=== PATIENT | female | born 1935 | race Caucasian/White ===

== ENCOUNTER 2017-02-17 00:47 | Emergency (ER) | payer OTHER, MEDICARE ==
[~2017-02-17] VITALS: Ht 167.6 cm; Wt 72.6 kg
--- NOTE | 2017-02-17 00:51 | ED MVC/FALL/TRAUMA COMPLAINT ---
History of Present Illness General Chief Complaint: Fall Stated Complaint: "FALL" Source: patient, EMS Exam Limitations: clinical condition Vital Signs & Intake/Output Vital Signs & Intake/Output Vital Signs Date Time Temp Pulse Resp B/P B/P Pulse O2 O2 Flow FiO2 Mean Ox Delivery Rate 02/17 0148 98.7 87 16 108/63 100 02/17 0049 98.2 96 18 163/102 94 Room Air Allergies Coded Allergies: acetaminophen (From PERCOCET) (Mild, NAUSEA 02/17/17) PT REPORTS VOMITING oxycodone (From PERCOCET) (Mild, NAUSEA 02/17/17) PT REPORTS VOMITING Reconcile Medications Aspirin (Aspirin*) 81 MG TAB.CHEW 1 TAB PO DAILY HEART HEALTH (Reported) Lisinopril 5 MG TABLET 1 TAB PO DAILY HIGH BLOOD PRESSURE (Reported) Simvastatin (Simvastatin*) 20 MG TABLET 1 TAB PO QPM HIGH CHOLESTROL ( Reported) Sitagliptin Phos/Metformin HCl (Janumet 50-1,000 MG Tablet) 50 MG-1,000 MG TABLET 1 TAB PO BID DIABETES (Reported) Triage Nurses Notes Reviewed? yes Onset: Abrupt Duration: minute(s): Timing: single episode today Severity: mild, moderate Injuries/Fall Location: head, "My tailbone hurts" Loss of Consciousness: brief (seconds) Modifying Factors: Improves With: rest. Associated Symptoms: bleeding from occiput, tailbone pain HPI: 81 yo woman h/o type ii diabetes, presents after a fall. She shares that she was walking out of a friend's home. She fell, briefly lost consciousness. "The next thing I knew, I was back inside." She does not recall palpitations, dizziness, chest pain, or syncopal prodrome. She notes bleeding from her occiput and tailbone pain, but was able to ambulate without problem afterwards. She is otherwise well. Past History Travel History Traveled to [place] past 21 day No Medical History Any Pertinent Medical History? see below for history Endocrine: diabetes Surgical History Surgical History: non-contributory Psychosocial History What is your primary language Slovenian Family History Hx Contributory? No Review of Systems Review of Systems Constitutional: Reports: no symptoms. Eyes: Reports: no symptoms. Ears, Nose, Throat, Mouth: Reports: no symptoms. Respiratory: Reports: no symptoms. Cardiovascular: Reports: no symptoms. Gastrointestinal/Abdominal: Reports: no symptoms. Genitourinary: Reports: no symptoms. Musculoskeletal: Reports: no symptoms. Skin: Reports: no symptoms. Neurological/Psychological: Reports: no symptoms. All Other Systems: Reviewed and Negative Physical Exam Physical Exam General Appearance: well developed/nourished, mild distress Head: 3cm oblique, superficial, well approximated laceration in occiput Eyes: Bilateral: normal appearance, PERRL, EOMI. Ears, Nose, Throat, Mouth: hearing grossly normal, moist mucous membrane Neck: normal inspection, supple, full range of motion, normal alignment, no midline tenderness Respiratory: normal breath sounds, chest non-tender, no respiratory distress, quiet respiration, lungs clear Cardiovascular: regular rate/rhythm Gastrointestinal: normal bowel sounds, soft, non-tender Back: normal inspection, no vertebral tenderness, mild lower lumbar paraspinal tenderness to palpation Extremities: normal range of motion, no ligament instability Neurologic/Psych: no motor/sensory deficits, awake, alert, oriented x 3 Skin: intact, normal color, warm/dry Core Measures ACS in differential dx? No CVA/TIA Diagnosis No Sepsis Present: No Sepsis Focused Exam Completed? No Progress Differential Diagnosis: C/T/L spine injury, ICH, pelvis injury Plan of Care: Orders Procedure Date/time Status XRY-PORTABLE CHEST XRAY 02/17 51 Active TROPONIN LEVEL 02/17 51 Complete PARTIAL THROMBOPLASTIN TIME 02/17 51 Complete PROTHROMBIN TIME 02/17 51 Complete COMPREHENSIVE METABOLIC PANEL 02/17 51 Complete CBC WITHOUT DIFFERENTIAL 02/17 51 Complete EKG 02/17 51 Active Laboratory Tests 02/17/17 0056: Anion Gap 11, Estimated GFR 60, BUN/Creatinine Ratio 18.9, Glucose 141 H, Calcium 9.8, Total Bilirubin 0.3, AST 33, ALT 49, Alkaline Phosphatase 28, Troponin I < 0.01, Total Protein 7.1, Albumin 4.2, Globulin 2.9, Albumin/ Globulin Ratio 1.4, PT 11.2, INR 1.07, APTT 25, CBC w Diff NO MAN DIFF REQ, RBC 4.57, MCV 89.3, MCH 30.1, RDW 14.2, MPV 7.6, Gran % 72.2, Lymphocytes % 19.2 L, Monocytes % 5.7, Eosinophils % 2.8, Basophils % 0.1, Absolute Granulocytes 6.6 H, Absolute Lymphocytes 1.8, Absolute Monocytes 0.5, Absolute Eosinophils 0.3, Absolute Basophils 0, PUBS MCHC 33.7 Diagnostic Imaging: Viewed by Me: Radiology Read, CT Scan. Discussed w/RAD: Radiology Read, CT Scan. Radiology Impression: HEAD/CERVICAL CT... CONCERN FOR SUBDURAL... FULL REPORT BELOW PATIENT: BILL GARCIA PRESENT AGE: 81 PATIENT ACCOUNT NO: [id number] : 34 LOCATION: [facility] ORDERING PHYSICIAN: Jose Mayorga MD SERVICE DATE: 02/17/17 EXAM TYPE: CAT - CT CERV SPINE WO IV CONTRAST; CT HEAD WO IV CONTRAST EXAMINATION: CT HEAD WITHOUT CONTRAST CT CERVICAL SPINE WITHOUT CONTRAST CLINICAL INFORMATION: Fall. Occiput laceration. COMPARISON: CT head dated 11/16/2012. TECHNIQUE: Contiguous axial imaging was performed from the skull base to vertex without intravenous administration of contrast. Multidetector helical imaging was performed through the cervical spine. Coronal and sagittal reformats were completed at the technologist workstation. DLP: 915 mGy-cm. FINDINGS: HEAD: There is a left parietal scalp contusion. No underlying calvarial fracture. There is slight thickening of the left tentorial leaflet. There is no evolved territorial infarction. No abnormal mass effect or midline shift is seen. Cortical morales to white matter differentiation is well preserved without evidence of territorial infarct. No hydrocephalus. The mastoid air cells and visualized portions of the paranasal sinuses are well aerated. CERVICAL SPINE: There is reversal of the normal cervical lordosis. No there is grade 1 degenerative anterolisthesis of C3 on C4 acute fracture or dislocation is identified in the cervical spine. Vertebral body heights are maintained. Hypertrophic degenerative changes noted at the atlantoaxial junction. No prevertebral soft tissue swelling. Multilevel spondylosis is present with disc osteophyte complexes at multiple levels most prominently C4-C5 where there is likely at least mild associated spinal canal narrowing. There is severe multilevel posterior facet arthropathy and upper cervical spine. The lung apices are clear. IMPRESSION: 1. Left parietal scalp contusion with slight asymmetric thickening of the left tentorial leaflet which may represent age-related calcification though a trace subdural hematoma is difficult to exclude. Consider short interval follow-up. 2. Multilevel degenerative changes in the cervical spine. No evidence of acute cervical spine traumatic injury. This critical result was discussed with Dr. Mayorga at 1:43 AM on 02/17/2017 and it was ascertained that the content and urgency of the report was understood at the time of direct communication. DICTATED BY: Jarrod Liao MD DATE/TIME DICTATED:02/17/17134 WOOL CLASSER:GARY DATE/ TIME TRANSCRIBED:02/17/17134 CONFIDENTIAL, DO NOT COPY WITHOUT APPROPRIATE AUTHORIZATION. <Electronically signed in Other Vendor System> SIGNED BY: Jarrod Liao MD 02/17/17 0153, sacrum/coccyx.... no acute fx PATIENT: BILL GARCIA PRESENT AGE: 81 PATIENT ACCOUNT NO: [id number] : 34 LOCATION: ER ORDERING PHYSICIAN: Jose Mayorga MD SERVICE DATE: 02/17/17 EXAM TYPE: RAD - XRY-SACRUM AND COCCYX EXAMINATION: XR PELVIS XR SACRUM AND COCCYX CLINICAL INFORMATION: Fall, trauma. COMPARISON: None TECHNIQUE: AP view of the pelvis. AP and lateral views of the sacrum and coccyx. FINDINGS: The bones and soft tissues are normal. No fracture. Sacroiliac and hip joints are normal. The iliopubic and iliopectineal lines are maintained. Pelvic rings are intact. Visualized abdominal gas pattern is unremarkable. The sacral body and gasper are intact. Posterior fusion hardware is noted in the lumbosacral spine. IMPRESSION: No acute osseous abnormalities. DICTATED BY: Jarrod Liao MD DATE/TIME DICTATED:02/17/17157 WOOL CLASSER:GARY DATE/TIME TRANSCRIBED:02/17/17157 CONFIDENTIAL, DO NOT COPY WITHOUT APPROPRIATE AUTHORIZATION. <Electronically signed in Other Vendor System> SIGNED BY: Jarrod Liao MD 02/17/17 0201, ap pelvis... no fx PATIENT: BILL GARCIA PRESENT AGE: 81 PATIENT ACCOUNT NO: [id number] : 34 LOCATION: ER ORDERING PHYSICIAN: Jose Mayorga MD SERVICE DATE: 02/17/17 EXAM TYPE: RAD - XRY-AP PELVIS EXAMINATION: XR PELVIS XR SACRUM AND COCCYX CLINICAL INFORMATION: Fall, trauma. COMPARISON: None TECHNIQUE: AP view of the pelvis. AP and lateral views of the sacrum and coccyx. FINDINGS: The bones and soft tissues are normal. No fracture. Sacroiliac and hip joints are normal. The iliopubic and iliopectineal lines are maintained. Pelvic rings are intact. Visualized abdominal gas pattern is unremarkable. The sacral body and gasper are intact. Posterior fusion hardware is noted in the lumbosacral spine. IMPRESSION: No acute osseous abnormalities. DICTATED BY: Jarrod Liao MD DATE/TIME DICTATED:02/17/17154 WOOL CLASSER:GARY DATE/TIME TRANSCRIBED:02/17/17154 CONFIDENTIAL, DO NOT COPY WITHOUT APPROPRIATE AUTHORIZATION. <Electronically signed in Other Vendor System> SIGNED BY: Jarrod Liao MD 02/17/17200, LS spine... no fx, fusion noted PATIENT: BILL GARCIA PRESENT AGE: 81 PATIENT ACCOUNT NO: [id number] : 34 LOCATION: [facility] ORDERING PHYSICIAN: Jose Mayorga MD SERVICE DATE: 02/17/17 EXAM TYPE: RAD - XRY-LUMBOSACRAL SPINE AP & LAT EXAMINATION: XR LUMBOSACRAL SPINE CLINICAL INFORMATION: Fall, trauma. COMPARISON : CT lumbar spine dated 04/08/2008. TECHNIQUE: AP and lateral views of the lumbar spine. FINDINGS: Posterior spinal fusion hardware is noted spanning L3- S1. The bones are osteopenic. Vertebral body heights are maintained. Spinal alignment is maintained. No evidence of fracture. There is loss of intervertebral disc space height at multiple levels most prominently L2-L3, L4- L5, and L5-S1. Atherosclerotic vascular calcifications are noted in the abdominal aorta. IMPRESSION: Images demonstrate prior posterior instrumentation and fusion from L3 through S1. No evidence of acute compression fracture or traumatic subluxation. DICTATED BY: Jarrod Liao MD DATE/TIME DICTATED:02/17 WOOL CLASSER:GARY DATE/TIME TRANSCRIBED:02/17/17157 CONFIDENTIAL, DO NOT COPY WITHOUT APPROPRIATE AUTHORIZATION. <Electronically signed in Other Vendor System> SIGNED BY: Jarrod Liao MD 02/17/17203 Departure Departure Disposition: [facility] (ACUTE) Condition: Stable Clinical Impression Primary Impression: Subdural hematoma Secondary Impressions: Contusion, Fall, Head injury, Scalp laceration Referrals: Giulia PANDEY,Lelia Ty (PCP/Family) Departure Forms: Customer Survey General Discharge Information Comments 02/17/17, 1:45am... discussed with [facility]... possible subdural hematoma 02/17/17, 2:04am... discussed with dr. peguero ([facility]) who accepts patient for transfer. Discussed at length with patient who has signed consent form for transfer. Critical Care Note Critical Care Note Critical Care Time: 30-74 min
[2017-02-17] MEDS ORDERED: JANUMET 50-1,01 EACH PO (01:08)
[2017-02-17] MEDS ORDERED: LISINOPRIL5 M1 PO (01:08)
[2017-02-17] MEDS ORDERED: SIMVASTATIN20 M2 PO (01:09)
[2017-02-17 01:11] LABS: ABSOLUTE BASOPHIL COUNT 0 /CUMM (0.0-0.2); ABSOLUTE EOSINOPHIL COUNT 0.3 /CUMM (0.0-0.7); ABSOLUTE GRANULOCYTE CT 6.6 /CUMM (1.4-6.5); ABSOLUTE LYMPH COUNT 1.8 /CUMM (1.2-3.4); ABSOLUTE MONOCYTE COUNT 0.5 /CUMM (0.10-0.60); BASOPHIL % 0.1 % (0.0-2.0); EOSINOPHIL % 2.8 % (0-5); GRANULOCYTE % 72.2 % (42.2-75.2); HEMATOCRIT 40.9 % (37-47); MEAN CORPUSCULAR HGB 30.1 PG (27.0-31.0); MEAN CORPUSCULAR HGB CONC 33.7 G/DL (33.0-37.0); MEAN CORPUSCULAR VOLUME 89.3 FL (81.0-99.0); MEAN PLATELET VOLUME 7.6 FL (7.4-10.4); PLATELET COUNT 288 /CUMM (130-400); RBC DISTRIBUTION WIDTH 14.2 % (11.5-14.5); RED BLOOD CELL CT 4.57 /CUMM (4.20-5.40); WHITE BLOOD CELL COUNT 9.1 /CUMM (4.8-10.8)
[2017-02-17] MEDS ORDERED: ASPIRIN81 M4 PO (01:11)
[2017-02-17 01:15] LABS: PT 11.2 SEC (9.4-12.5)
[2017-02-17 01:16] LABS: PTT 25 SEC (25-37)
[2017-02-17 01:48] VITALS: BP 108/63
--- NOTE | 2017-02-17 01:53 | CT SCAN REPORT ---
EXAMINATION: CT HEAD WITHOUT CONTRAST CT CERVICAL SPINE WITHOUT CONTRAST CLINICAL INFORMATION: Fall. Occiput laceration. COMPARISON: CT head dated 11/16/2012. TECHNIQUE: Contiguous axial imaging was performed from the skull base to vertex without intravenous administration of contrast. Multidetector helical imaging was performed through the cervical spine. Coronal and sagittal reformats were completed at the technologist workstation. DLP: 915 mGy-cm. FINDINGS: HEAD: There is a left parietal scalp contusion. No underlying calvarial fracture. There is slight thickening of the left tentorial leaflet. There is no evolved territorial infarction. No abnormal mass effect or midline shift is seen. Cortical morales to white matter differentiation is well preserved without evidence of territorial infarct. No hydrocephalus. The mastoid air cells and visualized portions of the paranasal sinuses are well aerated. CERVICAL SPINE: There is reversal of the normal cervical lordosis. No there is grade 1 degenerative anterolisthesis of C3 on C4 acute fracture or dislocation is identified in the cervical spine. Vertebral body heights are maintained. Hypertrophic degenerative changes noted at the atlantoaxial junction. No prevertebral soft tissue swelling. Multilevel spondylosis is present with disc osteophyte complexes at multiple levels most prominently C4-C5 where there is likely at least mild associated spinal canal narrowing. There is severe multilevel posterior facet arthropathy and upper cervical spine. The lung apices are clear. IMPRESSION: 1. Left parietal scalp contusion with slight asymmetric thickening of the left tentorial leaflet which may represent age-related calcification though a trace subdural hematoma is difficult to exclude. Consider short interval follow-up. 2. Multilevel degenerative changes in the cervical spine. No evidence of acute cervical spine traumatic injury. This critical result was discussed with Dr. Mayorga at 1:43 AM on 02/17/2017 and it was ascertained that the content and urgency of the report was understood at the time of direct communication.
--- NOTE | 2017-02-17 02:01 | RADIOLOGY REPORT ---
EXAMINATION: XR PELVIS XR SACRUM AND COCCYX CLINICAL INFORMATION: Fall, trauma. COMPARISON: None TECHNIQUE: AP view of the pelvis. AP and lateral views of the sacrum and coccyx. FINDINGS: The bones and soft tissues are normal. No fracture. Sacroiliac and hip joints are normal. The iliopubic and iliopectineal lines are maintained. Pelvic rings are intact. Visualized abdominal gas pattern is unremarkable. The sacral body and gasper are intact. Posterior fusion hardware is noted in the lumbosacral spine. IMPRESSION: No acute osseous abnormalities.
--- NOTE | 2017-02-17 02:04 | RADIOLOGY REPORT ---
EXAMINATION: XR LUMBOSACRAL SPINE CLINICAL INFORMATION: Fall, trauma. COMPARISON: CT lumbar spine dated 04/08/2008. TECHNIQUE: AP and lateral views of the lumbar spine. FINDINGS: Posterior spinal fusion hardware is noted spanning L3-S1. The bones are osteopenic. Vertebral body heights are maintained. Spinal alignment is maintained. No evidence of fracture. There is loss of intervertebral disc space height at multiple levels most prominently L2-L3, L4-L5, and L5-S1. Atherosclerotic vascular calcifications are noted in the abdominal aorta. IMPRESSION: Images demonstrate prior posterior instrumentation and fusion from L3 through S1. No evidence of acute compression fracture or traumatic subluxation.
--- NOTE | 2017-02-17 02:07 | RADIOLOGY REPORT ---
EXAMINATION: XR PORTABLE CHEST CLINICAL INFORMATION: Fall, trauma. COMPARISON: Chest radiograph dated 04/28/2008. TECHNIQUE: Portable frontal view of the chest was obtained. FINDINGS: There is mild diffuse interstitial prominence. No consolidative airspace process. No pleural effusion. No pneumothorax. There are calcified lymph nodes within the mediastinum. Cardiomediastinal silhouette is otherwise within normal limits. No acute osseous abnormalities. Degenerative changes noted in the left shoulder. IMPRESSION: 1. Mild nonspecific diffuse interstitial prominence, likely chronic. 2. Calcified mediastinal nodes likely representing sequela of prior granulomatous disease.
== END 2017-02-17 02:32 | disposition short-term general hospital (02) ==
LOC: ERH 00:47
PROVIDERS: Pediatrics
DX: S01.01XA Laceration without foreign body of scalp, initial encounter (principal); S09.90XA Unspecified injury of head, initial encounter; S06.5X1A Traumatic subdural hemorrhage with loss of consciousness of 30 minutes or less, initial encounter; S30.0XXA Contusion of lower back and pelvis, initial encounter; W19.XXXA Unspecified fall, initial encounter; Y92.9 Unspecified place or not applicable; Y93.9 Activity, unspecified
CPT/HCPCS: 71045; 72100; 72170; 72220; 90471; 90714; 93005; 93010; 99291; G0480